=== PATIENT | male | born 1955 | race African-American/Black ===

== ENCOUNTER 2021-10-16 11:38 | Inpatient (IN) | payer OTHER ==
[~2021-10-16] VITALS: Ht 170.2 cm; Wt 73.9 kg
[2021-10-16 12:22] LABS: BG BASE EXCESS -16.3 mmol/L (-2.0-2.0); BG CARBOXYHEMOGLOBIN 0.6 % (0.5-1.5); BG DEOXYHEMOGLOBIN 9.5 % (0.0-5.0); BG HCO3 ACT 8.3 mmol/L (22.0-26.0); BG METHEMOGLOBIN 0.2 % (0.0-1.5); BG OXYGEN SATURATION 90.4 % (92.0-98.5); BG OXYHEMOGLOBIN 89.7 % (94.0-97.0); BG PCO2 18.6 mmHg (35.0-45.0); BG PH 7.267 (7.350-7.450); BG PO2 60.3 mmHg (75.0-100.0); BG SAMPLE SITE RIGHT BRACHIAL; BG TOTAL HEMOGLOBIN 13.5 g/dL (12.0-18.0); BG VENT MODE NASAL CANNULA
[2021-10-16 12:29] LABS: BASOPHILS % 0.6 % (0.0-2.0); EOSINOPHILS % 0.7 % (0.0-5.0); HEMATOCRIT. 44.8 % (42.0-52.0); HEMOGLOBIN. 13.4 g/dL (14.0-18.0); LYMPHOCYTES % 16.5 % (20.0-50.0); MEAN CORPUSCULAR HEMOGLOBIN 30.1 pg (28.0-32.0); MEAN CORPUSCULAR VOLUME 100.7 fL (80.0-94.0); MEAN PLATELET VOLUME 8.3 fl (7.4-10.4); MONOCYTES % 5.1 % (2.0-8.0); NEUTROPHILS % 77.1 % (40.0-76.0); PLATELET 205 x1000/uL (130-400); RED BLOOD CELL COUNT 4.45 mill/uL (4.7-6.1); RED CELL DISTRIBUTION WIDTH 19.8 % (11.6-14.6)
[2021-10-16] MEDS ORDERED: VANCOMYCIN 1G PREMIX 200 ML IV ONE (12:30)
[2021-10-16] MEDS ORDERED: SODIUM CHLORIDE 0.9% 1,000 ML IV ONE ×3 (12:30→16:30)
[2021-10-16] MEDS ORDERED: CEFEPIME 2,000 MG in DEXT 5% WATER 100 ML IV SCH (12:30)
[2021-10-16] MEDS ORDERED: NOREPINEPHRINE 8MG/250ML PMX 250 ML IV ONE (12:30)
[2021-10-16 12:40] LABS: CHLORIDE 117 mEq/L (98-107)
[2021-10-16 12:48] LABS: ETHANOL BLOOD < 10 mg/dL
[2021-10-16] MEDS ORDERED: LIDOCAINE HCL/EPINEPHRINE 1%-EPI 1:100,000 20 ML VIAL ONE (13:02)
[2021-10-16 13:05] LABS: INR 1.3
[2021-10-16] MEDS ORDERED: VANCOMYCIN 1G PREMIX 200 ML IV NR (15:15)
[2021-10-16 15:22] LABS: CLARITY URINE CLEAR (CLEAR); COLOR URINE YELLOW (YELLOW); KETONES URINE NEGATIVE (NEGATIVE); LEUKOCYTE ESTERASE URINE NEGATIVE (NEGATIVE); NITRITE URINE NEGATIVE (NEGATIVE); OCCULT BLOOD URINE NEGATIVE (NEGATIVE); PROTEIN URINE 3+ (NEGATIVE); SPECIFIC GRAVITY URINE 1.022 (1.005-1.030); UROBILINOGEN URINE 0.2 E.U./dL (0.2-1.0)
[2021-10-16] MEDS ORDERED: ONDANSETRON HCL 4MG/2ML INJ IV ONE (15:30)
[2021-10-16] MEDS ORDERED: MORPHINE SULFATE 2 MG/ML CPJ (NOT FOR IM USE) IV ONE (15:30)
[2021-10-16 15:38] LABS: *AMPHETAMINES SCREEN URINE NEGATIVE (NEGATIVE); *BARBITURATES SCREEN URINE NEGATIVE (NEGATIVE); *BENZODIAZEPINES SCREEN URINE NEGATIVE (NEGATIVE); *COCAINE SCREEN URINE NEGATIVE (NEGATIVE); CANNABINOID URINE SCREEN NEGATIVE (NEGATIVE); METHADONE URINE SCREEN NEGATIVE (NEGATIVE); OPIATES URINE SCREEN NEGATIVE (NEGATIVE); PHENCYCLIDINE URINE SCREEN NEGATIVE (NEGATIVE)
[2021-10-16] MEDS ORDERED: SODIUM BICARBONATE 8.4% 1 MEQ/ML 50ML SYR IV ONE (16:30)
[2021-10-16] MEDS ORDERED: IPRATROPIUM/ALBUTEROL 0.5-3(2.5)MG/3ML NEB HHN PRN (16:30)
[2021-10-16] MEDS: VANCOMYCIN 1000MG/20ML ORAL SOLN PO SCH (18:00)
[2021-10-16] MEDS ORDERED: AZITHROMYCIN 500 MG TABLET PO NR (18:00)
[2021-10-16] MEDS ORDERED: NOREPINEPHRINE 8MG/250ML PMX 250 ML IV NR (18:00)
[2021-10-16] MEDS ORDERED: FUROSEMIDE 20MG/2ML VIAL IVP ONE (18:30)
[2021-10-16] MEDS ORDERED: NITROGLYCERIN 50MG PREMIX 250 ML IV ONE (20:15)
[2021-10-16 20:51] LABS: BG CARBOXYHEMOGLOBIN 0.2 % (0.5-1.5); BG DEOXYHEMOGLOBIN 1.6 % (0.0-5.0); BG FRACTION INSPIRED OXYGEN 100; BG HCO3 ACT 9.5 mmol/L (22.0-26.0); BG METHEMOGLOBIN 0.3 % (0.0-1.5); BG OXYGEN SATURATION 98.4 % (92.0-98.5); BG OXYHEMOGLOBIN 97.9 % (94.0-97.0); BG PCO2 20.4 mmHg (35.0-45.0); BG PH 7.284 (7.350-7.450); BG PO2 143.2 mmHg (75.0-100.0); BG SAMPLE SITE RIGHT RADIAL; BG TOTAL HEMOGLOBIN 13.3 g/dL (12.0-18.0); BG VENT MODE MASK - BIPAP
[2021-10-16] MEDS ORDERED: SODIUM BICARBONATE 8.4% 1 MEQ/ML 50ML SYR IV NR (21:15)
[2021-10-16] MEDS ORDERED: SODIUM BICARBONATE 100 MEQ in SODIUM CHLORIDE 0.45% 1,000 ML IV ONE (21:30)
[2021-10-16] MEDS ORDERED: ONDANSETRON HCL 4MG/2ML INJ IV PRN (23:30)
[2021-10-16] MEDS ORDERED: ACETAMINOPHEN 325MG TABLET PO PRN ×2 (23:30)
[2021-10-16] MEDS ORDERED: DIPHENHYDRAMINE 50MG/ML VIAL IV PRN (23:30)
[2021-10-16] MEDS ORDERED: HYDROCODONE/ACETAMINOPHEN 5/325MG TABLET PO PRN (23:30)
[2021-10-17] VITALS (154 sets, daily range): BP systolic 64–153; BP diastolic 34–111
[2021-10-17] MEDS: ACETYLCYSTEINE 100MG/ML 10% VIAL 4ML INH SCH ×3 (00:19→14:00)
[2021-10-17] MEDS: IPRATROPIUM/ALBUTEROL 0.5-3(2.5)MG/3ML NEB HHN SCH ×6 (00:19→20:00)
[2021-10-17] MEDS: CEFEPIME 2,000 MG in DEXT 5% WATER 100 ML IV SCH ×2 (00:59→12:05)
[2021-10-17] MEDS: NOREPINEPHRINE 32 MG in DEXT 5% WATER 218 ML IV PRN ×2 (01:00→14:28)
[2021-10-17 05:29] LABS: HEMATOCRIT. 35.9 % (42.0-52.0); HEMOGLOBIN. 11.4 g/dL (14.0-18.0); MEAN CORPUSCULAR HEMOGLOBIN 30.2 pg (28.0-32.0); MEAN CORPUSCULAR VOLUME 94.8 fL (80.0-94.0); MEAN PLATELET VOLUME 8.4 fl (7.4-10.4); PLATELET 181 x1000/uL (130-400); RED BLOOD CELL COUNT 3.78 mill/uL (4.7-6.1); RED CELL DISTRIBUTION WIDTH 19.1 % (11.6-14.6)
[2021-10-17] MEDS: BLOOD SUGAR DIAGNOSTIC STRIP TEST SCH ×4 (05:39→20:40)
[2021-10-17 05:46] LABS: CHLORIDE 115 mEq/L (98-107)
[2021-10-17 05:56] LABS: PHOSPHORUS 4.2 mg/dL (2.5-4.9)
[2021-10-17] MEDS: VANCOMYCIN 1000MG/20ML ORAL SOLN PO SCH ×5 (06:20→23:52)
[2021-10-17] MEDS: INSULIN LISPRO 100 UNITS/ML SUBCUT SCH ×4 (06:21→20:40)
[2021-10-17 06:38] LABS: PLATELET ESTIMATE NORMAL
[2021-10-17 08:03] LABS: BG BASE EXCESS -12.9 mmol/L (-2.0-2.0); BG CARBOXYHEMOGLOBIN 0.3 % (0.5-1.5); BG DEOXYHEMOGLOBIN 3.5 % (0.0-5.0); BG FRACTION INSPIRED OXYGEN 100; BG METHEMOGLOBIN 0.2 % (0.0-1.5); BG OXYGEN SATURATION 96.5 % (92.0-98.5); BG PCO2 21.6 mmHg (35.0-45.0); BG PH 7.325 (7.350-7.450); BG PO2 90.4 mmHg (75.0-100.0); BG SAMPLE SITE RIGHT BRACHIAL; BG TOTAL HEMOGLOBIN 12.7 g/dL (12.0-18.0); BG TOTAL RESPIRATORY RATE 42 b/min; BG VENT MODE MASK - BIPAP
[2021-10-17] MEDS ORDERED: VECURONIUM BROMIDE 10 MG/VIAL IV ONE (08:30)
[2021-10-17] MEDS ORDERED: ETOMIDATE 2MG/ML 10ML VIAL IV ONE (08:30)
[2021-10-17] MEDS: PANTOPRAZOLE SODIUM 40 MG/VIAL IV SCH (08:34)
[2021-10-17] MEDS ORDERED: AZITHROMYCIN 500 MG TABLET PO SCH (09:00)
[2021-10-17] MEDS ORDERED: LIDOCAINE HCL 1% 30ML VIAL (10MG/ML) ONE (09:47)
[2021-10-17] MEDS: PHENYLEPHRINE 100 MG in DEXT 5% WATER 240 ML IV PRN ×3 (11:35→19:18)
[2021-10-17 11:54] LABS: HEPATITIS B SURFACE ANTIGEN NEGATIVE
[2021-10-17] MEDS ORDERED: SODIUM BICARBONATE 8.4% 1 MEQ/ML 50ML SYR IV SCH (12:15)
[2021-10-17] MEDS: DEXTROSE 50% WATER 50ML SYRINGE IV PRN (12:57)
[2021-10-17] MEDS ORDERED: FENTANYL 2500MCG/250ML PMX 250 ML IV ONE (13:00)
[2021-10-17] MEDS ORDERED: NALOXONE HCL 0.4MG/ML VIAL IV PRN (13:00)
[2021-10-17] MEDS ORDERED: MIDAZOLAM 100MG/100ML PMX 100 ML IV PRN (13:00)
[2021-10-17] MEDS: MIDAZOLAM HCL 100 MG in SODIUM CHLORIDE 0.9% 100 ML IV PRN (13:59)
[2021-10-17] MEDS: FENTANYL CITRATE 2,500 MCG in SODIUM CHLORIDE 0.9% 200 ML IV PRN (14:00)
[2021-10-17 14:08] LABS: BG BASE EXCESS -17.2 mmol/L (-2.0-2.0); BG CARBOXYHEMOGLOBIN 0.3 % (0.5-1.5); BG DEOXYHEMOGLOBIN 9.5 % (0.0-5.0); BG FRACTION INSPIRED OXYGEN 100; BG HCO3 ACT 12.2 mmol/L (22.0-26.0); BG METHEMOGLOBIN 0.1 % (0.0-1.5); BG OXYGEN SATURATION 90.5 % (92.0-98.5); BG OXYHEMOGLOBIN 90.1 % (94.0-97.0); BG PCO2 42.1 mmHg (35.0-45.0); BG PH 7.079 (7.350-7.450); BG SAMPLE SITE RIGHT RADIAL; BG TOTAL HEMOGLOBIN 12.4 g/dL (12.0-18.0); BG VENT MODE VENT - AC
[2021-10-17] MEDS ORDERED: SODIUM BICARBONATE 8.4% 1 MEQ/ML 50ML SYR IV NR (14:30)
[2021-10-17] MEDS: SODIUM BICARBONATE 100 MEQ in SODIUM CHLORIDE 0.45% 1,000 ML IV SCH (14:30)
[2021-10-17] MEDS: VASOPRESSIN 20 UNIT in SODIUM CHLORIDE 0.9% 99 ML IV PRN ×2 (14:44→22:30)
[2021-10-17] MEDS ORDERED: SODIUM CHLORIDE 0.9% 500 ML IV NR (16:00)
[2021-10-17 16:17] LABS: BG BASE EXCESS -12.4 mmol/L (-2.0-2.0); BG CARBOXYHEMOGLOBIN 0.3 % (0.5-1.5); BG DEOXYHEMOGLOBIN 2.8 % (0.0-5.0); BG FRACTION INSPIRED OXYGEN 100; BG HCO3 ACT 12.9 mmol/L (22.0-26.0); BG METHEMOGLOBIN 0.3 % (0.0-1.5); BG OXYGEN SATURATION 97.2 % (92.0-98.5); BG OXYHEMOGLOBIN 96.6 % (94.0-97.0); BG PCO2 28.2 mmHg (35.0-45.0); BG PH 7.279 (7.350-7.450); BG PO2 106.6 mmHg (75.0-100.0); BG SAMPLE SITE RIGHT RADIAL; BG TOTAL HEMOGLOBIN 12.2 g/dL (12.0-18.0); BG VENT MODE VENT - AC
[2021-10-17] MEDS ORDERED: AMIODARONE HCL 150 MG in DEXT 5% WATER 100 ML IV NR (19:30)
[2021-10-17] MEDS: AMIODARONE HCL 900 MG in DEXT 5% WATER 482 ML IV PRN (20:05)
[2021-10-17] MEDS ORDERED: VANCOMYCIN 500MG PREMIX 100 ML IV NR (21:00)
[2021-10-18] VITALS (106 sets, daily range): BP systolic 58–164; BP diastolic 28–123
[2021-10-18] MEDS: IPRATROPIUM/ALBUTEROL 0.5-3(2.5)MG/3ML NEB HHN SCH ×5 (00:07→20:27)
[2021-10-18] MEDS: ACETYLCYSTEINE 100MG/ML 10% VIAL 4ML INH SCH ×2 (00:07→08:23)
[2021-10-18] MEDS: NOREPINEPHRINE 32 MG in DEXT 5% WATER 218 ML IV PRN ×2 (02:46→13:02)
[2021-10-18] MEDS: PHENYLEPHRINE 100 MG in DEXT 5% WATER 240 ML IV PRN ×3 (03:47→21:52)
[2021-10-18] MEDS: VANCOMYCIN 1000MG/20ML ORAL SOLN PO SCH ×3 (05:53→17:36)
[2021-10-18] MEDS: INSULIN LISPRO 100 UNITS/ML SUBCUT SCH ×4 (07:00→20:51)
[2021-10-18] MEDS: BLOOD SUGAR DIAGNOSTIC STRIP TEST SCH ×4 (07:06→21:00)
[2021-10-18 08:13] LABS: BG BASE EXCESS -11.6 mmol/L (-2.0-2.0); BG CARBOXYHEMOGLOBIN 0.3 % (0.5-1.5); BG DEOXYHEMOGLOBIN 1.1 % (0.0-5.0); BG FRACTION INSPIRED OXYGEN 100; BG HCO3 ACT 11.8 mmol/L (22.0-26.0); BG OXYGEN SATURATION 98.9 % (92.0-98.5); BG OXYHEMOGLOBIN 98.6 % (94.0-97.0); BG PCO2 21.3 mmHg (35.0-45.0); BG PO2 190.9 mmHg (75.0-100.0); BG SAMPLE SITE RIGHT BRACHIAL; BG TOTAL HEMOGLOBIN 12.3 g/dL (12.0-18.0); BG VENT MODE VENT - AC
[2021-10-18] MEDS: CEFEPIME 1,000 MG in DEXTROSE 5% WATER 50 ML IV SCH (08:19)
[2021-10-18] MEDS: AZITHROMYCIN 500 MG in DEXT 5% WATER 250 ML IV SCH (08:19)
[2021-10-18] MEDS: PANTOPRAZOLE SODIUM 40 MG/VIAL IV SCH (08:19)
[2021-10-18] MEDS ORDERED: SODIUM BICARBONATE 8.4% 1 MEQ/ML 50ML SYR IV NR (09:24)
[2021-10-18] MEDS: SODIUM BICARBONATE 100 MEQ in SODIUM CHLORIDE 0.45% 1,000 ML IV SCH (09:50)
[2021-10-18 10:35] LABS: HEMATOCRIT. 36.9 % (42.0-52.0); HEMOGLOBIN. 11.7 g/dL (14.0-18.0); MEAN CORPUSCULAR HEMOGLOBIN 29.9 pg (28.0-32.0); MEAN CORPUSCULAR VOLUME 94.5 fL (80.0-94.0); MEAN PLATELET VOLUME 8.4 fl (7.4-10.4); PLATELET 86 x1000/uL (130-400); RED CELL DISTRIBUTION WIDTH 19.6 % (11.6-14.6)
[2021-10-18] MEDS: DEXTROSE 50% WATER 50ML SYRINGE IV PRN ×3 (11:17→20:50)
[2021-10-18 12:43] LABS: PLATELET ESTIMATE DECREASED
[2021-10-18] MEDS: FENTANYL CITRATE 2,500 MCG in SODIUM CHLORIDE 0.9% 200 ML IV PRN (13:02)
[2021-10-18] MEDS ORDERED: POTA10CA42 MT (15:31)
[2021-10-18] MEDS ORDERED: SODI650T PO (15:33)
[2021-10-18] MEDS ORDERED: APIX5TAB PO (15:33)
[2021-10-18] MEDS ORDERED: PRED5TAB48 PO (15:34)
[2021-10-18] MEDS ORDERED: MYCO250C PO (15:35)
[2021-10-18] MEDS ORDERED: SILD20TA PO (15:36)
[2021-10-18] MEDS ORDERED: TACR1CAP PO (15:37)
[2021-10-18] MEDS ORDERED: ATOR20TA65 PO (15:38)
[2021-10-18] MEDS ORDERED: VITA250012 MT (15:39)
[2021-10-18] MEDS ORDERED: CALC0.253 PO (15:41)
[2021-10-18] MEDS ORDERED: DIGOXIN 500MCG/2ML AMP IV NR ×2 (16:15→18:30)
[2021-10-18] MEDS: AMIODARONE HCL 900 MG in DEXT 5% WATER 482 ML IV PRN (17:16)
[2021-10-18] MEDS: VASOPRESSIN 20 UNIT in SODIUM CHLORIDE 0.9% 99 ML IV PRN (19:41)
[2021-10-18 19:58] LABS: D-DIMER 17.77 mg/L FEU (<0.50); PROTHROMBIN TIME 20.6 sec (9.6-11.0)
[2021-10-19] VITALS (98 sets, daily range): BP systolic 77–170; BP diastolic 48–91
[2021-10-19] MEDS: IPRATROPIUM/ALBUTEROL 0.5-3(2.5)MG/3ML NEB HHN SCH ×7 (00:19→23:55)
[2021-10-19] MEDS: ACETYLCYSTEINE 100MG/ML 10% VIAL 4ML INH SCH ×4 (00:19→23:54)
[2021-10-19] MEDS: VANCOMYCIN 1000MG/20ML ORAL SOLN PO SCH ×4 (00:20→18:43)
[2021-10-19] MEDS: MIDAZOLAM HCL 100 MG in SODIUM CHLORIDE 0.9% 100 ML IV PRN (01:09)
[2021-10-19] MEDS: VASOPRESSIN 20 UNIT in SODIUM CHLORIDE 0.9% 99 ML IV PRN ×2 (02:59→13:49)
[2021-10-19 05:04] LABS: HEMATOCRIT. 34.7 % (42.0-52.0); HEMOGLOBIN. 11.1 g/dL (14.0-18.0); MEAN CORPUSCULAR HEMOGLOBIN 29.8 pg (28.0-32.0); MEAN CORPUSCULAR VOLUME 93.1 fL (80.0-94.0); MEAN PLATELET VOLUME 8.6 fl (7.4-10.4); PLATELET 64 x1000/uL (130-400); RED BLOOD CELL COUNT 3.73 mill/uL (4.7-6.1); RED CELL DISTRIBUTION WIDTH 19.4 % (11.6-14.6)
[2021-10-19] MEDS: PHENYLEPHRINE 100 MG in DEXT 5% WATER 240 ML IV PRN ×3 (06:39→23:37)
[2021-10-19] MEDS: BLOOD SUGAR DIAGNOSTIC STRIP TEST SCH ×4 (06:59→20:53)
[2021-10-19] MEDS: INSULIN LISPRO 100 UNITS/ML SUBCUT SCH ×3 (06:59→16:55)
[2021-10-19] MEDS: DEXTROSE 50% WATER 50ML SYRINGE IV PRN (07:02)
[2021-10-19 07:11] LABS: NUCLEATED RED BLOOD CELLS 3 /100 WBC
[2021-10-19 07:12] LABS: PLATELET ESTIMATE DECREASED
[2021-10-19] MEDS: AZITHROMYCIN 500 MG in DEXT 5% WATER 250 ML IV SCH (07:53)
[2021-10-19] MEDS: SODIUM BICARBONATE 100 MEQ in SODIUM CHLORIDE 0.45% 1,000 ML IV SCH (08:20)
[2021-10-19] MEDS: PANTOPRAZOLE SODIUM 40 MG/VIAL IV SCH (08:23)
[2021-10-19] MEDS: CEFEPIME 1,000 MG in DEXTROSE 5% WATER 50 ML IV SCH (08:58)
[2021-10-19 09:00] LABS: BG BASE EXCESS -5.6 mmol/L (-2.0-2.0); BG CARBOXYHEMOGLOBIN 0.4 % (0.5-1.5); BG DEOXYHEMOGLOBIN 3.4 % (0.0-5.0); BG METHEMOGLOBIN 0.2 % (0.0-1.5); BG OXYGEN SATURATION 96.6 % (92.0-98.5); BG PCO2 29.2 mmHg (35.0-45.0); BG PH 7.407 (7.350-7.450); BG PO2 93.3 mmHg (75.0-100.0); BG SAMPLE SITE RIGHT RADIAL; BG TOTAL HEMOGLOBIN 11.5 g/dL (12.0-18.0); BG VENT MODE VENT - AC
[2021-10-19] MEDS ORDERED: VANCOMYCIN 500MG PREMIX 100 ML IV SCH (11:00)
[2021-10-19] MEDS: FENTANYL CITRATE 2,500 MCG in SODIUM CHLORIDE 0.9% 200 ML IV PRN (13:50)
[2021-10-19] MEDS: MEROPENEM 1,000 MG in SODIUM CHLORIDE 0.9% 100 ML IV SCH (17:26)
[2021-10-20] VITALS (91 sets, daily range): BP systolic 72–170; BP diastolic 36–134
[2021-10-20] MEDS ORDERED: BLOOD SUGAR DIAGNOSTIC STRIP TEST SCH
[2021-10-20] MEDS: VASOPRESSIN 20 UNIT in SODIUM CHLORIDE 0.9% 99 ML IV PRN (01:13)
[2021-10-20] MEDS: IPRATROPIUM/ALBUTEROL 0.5-3(2.5)MG/3ML NEB HHN SCH ×5 (03:26→20:12)
[2021-10-20 05:31] LABS: HEMATOCRIT 32.4 % (42.0-52.0); HEMOGLOBIN 10.5 g/dL (14.0-18.0); MEAN CORPUSCULAR HEMOGLOBIN 29.7 pg (28.0-32.0); MEAN CORPUSCULAR VOLUME 91.9 fL (80.0-94.0); RED BLOOD CELL COUNT 3.52 mill/uL (4.7-6.1); RED CELL DISTRIBUTION WIDTH 18.9 % (11.6-14.6)
[2021-10-20 05:44] LABS: PLATELET 45 x1000/uL (130-400)
[2021-10-20] MEDS: VANCOMYCIN 1000MG/20ML ORAL SOLN PO SCH ×4 (06:00→17:41)
[2021-10-20] MEDS: SODIUM BICARBONATE 100 MEQ in SODIUM CHLORIDE 0.45% 1,000 ML IV SCH (06:14)
[2021-10-20] MEDS: INSULIN LISPRO 100 UNITS/ML SUBCUT SCH ×5 (06:15→21:00)
[2021-10-20] MEDS: AZITHROMYCIN 500 MG in DEXT 5% WATER 250 ML IV SCH (07:52)
[2021-10-20] MEDS: PANTOPRAZOLE SODIUM 40 MG/VIAL IV SCH (08:04)
[2021-10-20] MEDS: ACETYLCYSTEINE 100MG/ML 10% VIAL 4ML INH SCH ×2 (09:11→16:49)
[2021-10-20] MEDS: CITRIC ACID/SODIUM CITRATE SOLN 30ML UDC NG SCH ×3 (09:26→17:41)
[2021-10-20 09:33] LABS: BG BASE EXCESS 0.8 mmol/L (-2.0-2.0); BG CARBOXYHEMOGLOBIN 0.3 % (0.5-1.5); BG DEOXYHEMOGLOBIN 5.7 % (0.0-5.0); BG FRACTION INSPIRED OXYGEN 55; BG HCO3 ACT 22.6 mmol/L (22.0-26.0); BG METHEMOGLOBIN 0.1 % (0.0-1.5); BG OXYGEN SATURATION 94.3 % (92.0-98.5); BG OXYHEMOGLOBIN 93.9 % (94.0-97.0); BG PCO2 27.4 mmHg (35.0-45.0); BG PH 7.535 (7.350-7.450); BG PO2 70.8 mmHg (75.0-100.0); BG SAMPLE SITE RIGHT RADIAL; BG TOTAL HEMOGLOBIN 10.7 g/dL (12.0-18.0); BG VENT MODE VENT - AC
[2021-10-20] MEDS: BLOOD SUGAR DIAGNOSTIC STRIP TEST SCH ×3 (12:03→23:51)
[2021-10-20] MEDS: PHENYLEPHRINE 100 MG in DEXT 5% WATER 240 ML IV PRN (14:42)
[2021-10-20] MEDS: MEROPENEM 1,000 MG in SODIUM CHLORIDE 0.9% 100 ML IV SCH (17:41)
[2021-10-20] MEDS: AMIODARONE HCL 900 MG in DEXT 5% WATER 482 ML IV PRN (18:27)
[2021-10-20] MEDS ORDERED: AMIODARONE HCL 100 MG in DEXT 5% WATER 100 ML IV NR (18:30)
[2021-10-21] VITALS (93 sets, daily range): BP systolic 78–129; BP diastolic 42–84
[2021-10-21] MEDS: ACETYLCYSTEINE 100MG/ML 10% VIAL 4ML INH SCH ×3 (00:09→15:39)
[2021-10-21] MEDS: IPRATROPIUM/ALBUTEROL 0.5-3(2.5)MG/3ML NEB HHN SCH ×6 (00:09→20:52)
[2021-10-21] MEDS: VANCOMYCIN 1000MG/20ML ORAL SOLN PO SCH ×4 (00:54→17:30)
[2021-10-21] MEDS: PHENYLEPHRINE 100 MG in DEXT 5% WATER 240 ML IV PRN ×3 (03:03→17:40)
[2021-10-21] MEDS: FENTANYL CITRATE 2,500 MCG in SODIUM CHLORIDE 0.9% 200 ML IV PRN (03:05)
[2021-10-21 04:36] LABS: HEMATOCRIT. 33.1 % (42.0-52.0); HEMOGLOBIN. 10.6 g/dL (14.0-18.0); MEAN CORPUSCULAR HEMOGLOBIN 29.2 pg (28.0-32.0); MEAN CORPUSCULAR VOLUME 91.1 fL (80.0-94.0); MEAN PLATELET VOLUME 9.5 fl (7.4-10.4); RED BLOOD CELL COUNT 3.64 mill/uL (4.7-6.1); RED CELL DISTRIBUTION WIDTH 18.5 % (11.6-14.6)
[2021-10-21 04:42] LABS: CHLORIDE 100 mEq/L (98-107)
[2021-10-21] MEDS: BLOOD SUGAR DIAGNOSTIC STRIP TEST SCH ×3 (05:19→17:30)
[2021-10-21] MEDS: INSULIN LISPRO 100 UNITS/ML SUBCUT SCH ×3 (06:00→16:33)
[2021-10-21 07:26] LABS: NUCLEATED RED BLOOD CELLS 1 /100 WBC; PLATELET ESTIMATE MARKEDLY DECREASED
[2021-10-21 07:27] LABS: PLATELET 28 x1000/uL (130-400)
[2021-10-21] MEDS: PANTOPRAZOLE SODIUM 40 MG/VIAL IV SCH (08:40)
[2021-10-21] MEDS: CITRIC ACID/SODIUM CITRATE SOLN 30ML UDC NG SCH ×3 (08:40→17:28)
[2021-10-21 09:40] LABS: BG BASE EXCESS 3.8 mmol/L (-2.0-2.0); BG CARBOXYHEMOGLOBIN 0.3 % (0.5-1.5); BG FRACTION INSPIRED OXYGEN 70; BG HCO3 ACT 26.1 mmol/L (22.0-26.0); BG OXYHEMOGLOBIN 96.7 % (94.0-97.0); BG PCO2 31.8 mmHg (35.0-45.0); BG PH 7.532 (7.350-7.450); BG PO2 93.4 mmHg (75.0-100.0); BG SAMPLE SITE RIGHT RADIAL; BG TOTAL HEMOGLOBIN 12.3 g/dL (12.0-18.0)
[2021-10-21 09:52] LABS: BG VENT MODE VENT - A/C
[2021-10-21] MEDS: AMIODARONE HCL 900 MG in DEXT 5% WATER 482 ML IV PRN (11:13)
[2021-10-21] MEDS: METOCLOPRAMIDE HCL 10MG/2ML VIAL IV SCH (17:28)
[2021-10-21] MEDS: MEROPENEM 1,000 MG in SODIUM CHLORIDE 0.9% 100 ML IV SCH (17:29)
[2021-10-21] MEDS: POLYVINYL ALCOHOL OPHTH DROPS 15ML BOTHEYE SCH (17:29)
[2021-10-22] VITALS (97 sets, daily range): BP systolic 68–171; BP diastolic 34–108
[2021-10-22] MEDS: BLOOD SUGAR DIAGNOSTIC STRIP TEST SCH ×4 (00:09→18:12)
[2021-10-22] MEDS: VANCOMYCIN 1000MG/20ML ORAL SOLN PO SCH ×4 (00:09→18:00)
[2021-10-22] MEDS: METOCLOPRAMIDE HCL 10MG/2ML VIAL IV SCH ×4 (00:09→18:00)
[2021-10-22] MEDS: POLYVINYL ALCOHOL OPHTH DROPS 15ML BOTHEYE SCH ×4 (00:09→17:59)
[2021-10-22] MEDS: IPRATROPIUM/ALBUTEROL 0.5-3(2.5)MG/3ML NEB HHN SCH ×6 (00:34→21:10)
[2021-10-22 04:08] LABS: PHOSPHORUS 4.6 mg/dL (2.5-4.9)
[2021-10-22 04:11] LABS: HEMATOCRIT. 33.6 % (42.0-52.0); HEMOGLOBIN. 10.6 g/dL (14.0-18.0); MEAN CORPUSCULAR HEMOGLOBIN 29.2 pg (28.0-32.0); MEAN CORPUSCULAR VOLUME 92.4 fL (80.0-94.0); MEAN PLATELET VOLUME 8.7 fl (7.4-10.4); RED BLOOD CELL COUNT 3.63 mill/uL (4.7-6.1); RED CELL DISTRIBUTION WIDTH 17.9 % (11.6-14.6)
[2021-10-22 04:28] LABS: PLATELET 19 x1000/uL (130-400)
[2021-10-22] MEDS: PHENYLEPHRINE 100 MG in DEXT 5% WATER 240 ML IV PRN ×3 (05:15→17:25)
[2021-10-22] MEDS: INSULIN LISPRO 100 UNITS/ML SUBCUT SCH ×4 (06:00→18:00)
[2021-10-22 06:56] LABS: PLATELET ESTIMATE DECREASED
[2021-10-22] MEDS ORDERED: AMIODARONE HCL 900 MG in DEXT 5% WATER 482 ML IV PRN (07:30)
[2021-10-22] MEDS: PANTOPRAZOLE SODIUM 40 MG/VIAL IV SCH (09:09)
[2021-10-22] MEDS: CITRIC ACID/SODIUM CITRATE SOLN 30ML UDC NG SCH ×3 (09:10→16:26)
[2021-10-22] MEDS: FENTANYL CITRATE 2,500 MCG in SODIUM CHLORIDE 0.9% 200 ML IV PRN ×2 (11:11→16:31)
[2021-10-22] MEDS: VASOPRESSIN 20 UNIT in SODIUM CHLORIDE 0.9% 99 ML IV PRN ×2 (11:24→21:05)
[2021-10-22] MEDS: NOREPINEPHRINE 32 MG in DEXT 5% WATER 218 ML IV PRN (11:25)
[2021-10-22] MEDS ORDERED: VANCOMYCIN 750MG PREMIX 150 ML IV SCH (14:00)
[2021-10-22] MEDS: HYDROCORTISONE SOD SUCCINATE 100 MG/2 ML VIAL IV SCH ×2 (14:00→21:05)
[2021-10-22 14:41] LABS: INR 1.8; PROTHROMBIN TIME 18.4 sec (9.6-11.0)
[2021-10-22] MEDS ORDERED: FENTANYL 2500MCG/250ML PMX 250 ML IV ONE (15:45)
[2021-10-22] MEDS: MEROPENEM 1,000 MG in SODIUM CHLORIDE 0.9% 100 ML IV SCH (17:59)
[2021-10-23] VITALS (95 sets, daily range): BP systolic 84–156; BP diastolic 49–85
[2021-10-23] MEDS: BLOOD SUGAR DIAGNOSTIC STRIP TEST SCH ×5 (00:33→23:14)
[2021-10-23] MEDS: POLYVINYL ALCOHOL OPHTH DROPS 15ML BOTHEYE SCH ×5 (00:40→23:14)
[2021-10-23] MEDS: METOCLOPRAMIDE HCL 10MG/2ML VIAL IV SCH ×5 (00:40→23:14)
[2021-10-23] MEDS: IPRATROPIUM/ALBUTEROL 0.5-3(2.5)MG/3ML NEB HHN SCH ×5 (00:59→19:55)
[2021-10-23] MEDS: PHENYLEPHRINE 100 MG in DEXT 5% WATER 240 ML IV PRN ×3 (02:53→15:21)
[2021-10-23] MEDS: INSULIN LISPRO 100 UNITS/ML SUBCUT SCH ×5 (06:00→23:14)
[2021-10-23] MEDS: HYDROCORTISONE SOD SUCCINATE 100 MG/2 ML VIAL IV SCH ×3 (06:43→21:16)
[2021-10-23 08:06] LABS: BG BASE EXCESS 2.6 mmol/L (-2.0-2.0); BG CARBOXYHEMOGLOBIN 0.6 % (0.5-1.5); BG DEOXYHEMOGLOBIN 4.6 % (0.0-5.0); BG FRACTION INSPIRED OXYGEN 50; BG HCO3 ACT 26.9 mmol/L (22.0-26.0); BG METHEMOGLOBIN 0.2 % (0.0-1.5); BG OXYGEN SATURATION 95.4 % (92.0-98.5); BG OXYHEMOGLOBIN 94.6 % (94.0-97.0); BG PCO2 40.1 mmHg (35.0-45.0); BG PH 7.444 (7.350-7.450); BG PO2 80.4 mmHg (75.0-100.0); BG SAMPLE SITE LEFT BRACHIAL; BG TOTAL HEMOGLOBIN 12.1 g/dL (12.0-18.0); BG VENT MODE VENT - AC
[2021-10-23 08:49] LABS: HEMATOCRIT 35.5 % (42.0-52.0); HEMOGLOBIN 11.1 g/dL (14.0-18.0); MEAN CORPUSCULAR HEMOGLOBIN 29.2 pg (28.0-32.0); MEAN CORPUSCULAR VOLUME 93.1 fL (80.0-94.0); RED BLOOD CELL COUNT 3.82 mill/uL (4.7-6.1); RED CELL DISTRIBUTION WIDTH 18.4 % (11.6-14.6)
[2021-10-23] MEDS: PANTOPRAZOLE SODIUM 40 MG/VIAL IV SCH (09:17)
[2021-10-23] MEDS: CITRIC ACID/SODIUM CITRATE SOLN 30ML UDC NG SCH ×3 (09:17→17:45)
[2021-10-23 09:52] LABS: PLATELET 39 x1000/uL (130-400)
[2021-10-23 11:36] LABS: HEPATITIS B SURFACE ANTIGEN NEGATIVE
[2021-10-23] MEDS ORDERED: AMIODARONE HCL 900 MG in DEXT 5% WATER 482 ML IV SCH (12:00)
[2021-10-23] MEDS: MEROPENEM 1,000 MG in SODIUM CHLORIDE 0.9% 100 ML IV SCH (17:35)
[2021-10-23] MEDS: FENTANYL CITRATE 2,500 MCG in SODIUM CHLORIDE 0.9% 200 ML IV PRN (20:15)
[2021-10-23] MEDS: PETROLATUM,WHITE OPHTH OINT 3.5GM BOTHEYE SCH (22:03)
[2021-10-24] VITALS (106 sets, daily range): BP systolic 61–181; BP diastolic 35–108
[2021-10-24] MEDS: IPRATROPIUM/ALBUTEROL 0.5-3(2.5)MG/3ML NEB HHN SCH ×6 (00:38→20:25)
[2021-10-24] MEDS: METOCLOPRAMIDE HCL 10MG/2ML VIAL IV SCH ×3 (05:29→17:23)
[2021-10-24] MEDS: POLYVINYL ALCOHOL OPHTH DROPS 15ML BOTHEYE SCH ×3 (05:29→17:23)
[2021-10-24] MEDS: HYDROCORTISONE SOD SUCCINATE 100 MG/2 ML VIAL IV SCH ×3 (05:29→21:56)
[2021-10-24 05:34] LABS: HEMATOCRIT. 36.8 % (42.0-52.0); HEMOGLOBIN. 11.3 g/dL (14.0-18.0); MEAN CORPUSCULAR HEMOGLOBIN 28.6 pg (28.0-32.0); MEAN CORPUSCULAR VOLUME 92.6 fL (80.0-94.0); RED BLOOD CELL COUNT 3.97 mill/uL (4.7-6.1); RED CELL DISTRIBUTION WIDTH 18.4 % (11.6-14.6)
[2021-10-24 05:38] LABS: PLATELET 47 x1000/uL (130-400)
[2021-10-24] MEDS: INSULIN LISPRO 100 UNITS/ML SUBCUT SCH ×3 (05:48→17:11)
[2021-10-24] MEDS: BLOOD SUGAR DIAGNOSTIC STRIP TEST SCH ×3 (05:48→17:11)
[2021-10-24 08:05] LABS: NUCLEATED RED BLOOD CELLS 1 /100 WBC
[2021-10-24 08:07] LABS: PLATELET ESTIMATE MARKEDLY DECREASED
[2021-10-24] MEDS: PETROLATUM,WHITE OPHTH OINT 3.5GM BOTHEYE SCH ×2 (08:51→21:56)
[2021-10-24] MEDS: PANTOPRAZOLE SODIUM 40 MG/VIAL IV SCH (08:51)
[2021-10-24] MEDS: CITRIC ACID/SODIUM CITRATE SOLN 30ML UDC NG SCH ×3 (08:51→17:23)
[2021-10-24 08:57] LABS: BG BASE EXCESS 2.9 mmol/L (-2.0-2.0); BG CARBOXYHEMOGLOBIN 0.3 % (0.5-1.5); BG DEOXYHEMOGLOBIN 4.2 % (0.0-5.0); BG FRACTION INSPIRED OXYGEN 70; BG METHEMOGLOBIN 0.3 % (0.0-1.5); BG OXYGEN SATURATION 95.8 % (92.0-98.5); BG OXYHEMOGLOBIN 95.2 % (94.0-97.0); BG PCO2 39.8 mmHg (35.0-45.0); BG PO2 88.4 mmHg (75.0-100.0); BG SAMPLE SITE RIGHT BRACHIAL; BG VENT MODE VENT - AC
[2021-10-24] MEDS: ACETYLCYSTEINE 100MG/ML 10% VIAL 4ML INH SCH (16:11)
[2021-10-24] MEDS ORDERED: DIGOXIN 500MCG/2ML AMP IV NR (17:00)
[2021-10-24] MEDS: MEROPENEM 1,000 MG in SODIUM CHLORIDE 0.9% 100 ML IV SCH (17:23)
[2021-10-24] MEDS: PHENYLEPHRINE 100 MG in DEXT 5% WATER 240 ML IV PRN (17:25)
[2021-10-24] MEDS ORDERED: VANCOMYCIN 500MG PREMIX 100 ML IV NR (18:00)
[2021-10-24] MEDS: FENTANYL CITRATE 2,500 MCG in SODIUM CHLORIDE 0.9% 200 ML IV PRN (18:30)
[2021-10-24] MEDS ORDERED: DIGOXIN 500MCG/2ML AMP IV PRN ×2 (20:00→23:00)
[2021-10-25] VITALS (98 sets, daily range): BP systolic 74–205; BP diastolic 41–115
[2021-10-25] MEDS: ACETYLCYSTEINE 100MG/ML 10% VIAL 4ML INH SCH ×3 (00:25→16:29)
[2021-10-25] MEDS: IPRATROPIUM/ALBUTEROL 0.5-3(2.5)MG/3ML NEB HHN SCH ×6 (00:25→20:01)
[2021-10-25] MEDS: BLOOD SUGAR DIAGNOSTIC STRIP TEST SCH ×4 (00:51→17:22)
[2021-10-25] MEDS: METOCLOPRAMIDE HCL 10MG/2ML VIAL IV SCH ×4 (00:51→17:45)
[2021-10-25] MEDS: POLYVINYL ALCOHOL OPHTH DROPS 15ML BOTHEYE SCH ×4 (00:51→17:45)
[2021-10-25] MEDS: HYDROCORTISONE SOD SUCCINATE 100 MG/2 ML VIAL IV SCH ×3 (05:51→21:38)
[2021-10-25] MEDS: INSULIN LISPRO 100 UNITS/ML SUBCUT SCH ×4 (06:00→17:22)
[2021-10-25] MEDS: CITRIC ACID/SODIUM CITRATE SOLN 30ML UDC NG SCH ×3 (08:52→17:45)
[2021-10-25] MEDS: PANTOPRAZOLE SODIUM 40 MG/VIAL IV SCH (08:52)
[2021-10-25] MEDS: PETROLATUM,WHITE OPHTH OINT 3.5GM BOTHEYE SCH ×2 (08:52→21:38)
[2021-10-25 08:57] LABS: BG BASE EXCESS 2.6 mmol/L (-2.0-2.0); BG CARBOXYHEMOGLOBIN 0.3 % (0.5-1.5); BG DEOXYHEMOGLOBIN 8.3 % (0.0-5.0); BG FRACTION INSPIRED OXYGEN 50; BG HCO3 ACT 26.4 mmol/L (22.0-26.0); BG METHEMOGLOBIN 0.2 % (0.0-1.5); BG OXYGEN SATURATION 91.7 % (92.0-98.5); BG OXYHEMOGLOBIN 91.2 % (94.0-97.0); BG PCO2 37.8 mmHg (35.0-45.0); BG PH 7.462 (7.350-7.450); BG PO2 66.9 mmHg (75.0-100.0); BG SAMPLE SITE RIGHT BRACHIAL; BG TOTAL HEMOGLOBIN 10.5 g/dL (12.0-18.0); BG VENT MODE VENT - AC
[2021-10-25 09:06] LABS: HEMOGLOBIN. 10.1 g/dL (14.0-18.0); MEAN CORPUSCULAR HEMOGLOBIN 29.6 pg (28.0-32.0); MEAN CORPUSCULAR VOLUME 93.7 fL (80.0-94.0); MEAN PLATELET VOLUME 11.5 fl (7.4-10.4); RED BLOOD CELL COUNT 3.41 mill/uL (4.7-6.1); RED CELL DISTRIBUTION WIDTH 18.3 % (11.6-14.6)
[2021-10-25] MEDS: MIDODRINE HCL 5MG TABLET PO SCH ×3 (09:43→17:00)
[2021-10-25 09:55] LABS: PLATELET ESTIMATE MARKEDLY DECREASED
[2021-10-25 09:56] LABS: PLATELET 44 x1000/uL (130-400)
[2021-10-25] MEDS: MEROPENEM 1,000 MG in SODIUM CHLORIDE 0.9% 100 ML IV SCH (17:45)
[2021-10-25] MEDS: PHENYLEPHRINE 100 MG in DEXT 5% WATER 240 ML IV PRN (17:46)
[2021-10-25] MEDS: FENTANYL CITRATE 2,500 MCG in SODIUM CHLORIDE 0.9% 200 ML IV PRN (17:47)
== END 2021-10-25 23:00 | disposition short-term general hospital (02) | DRG 870 ==
LOC: ER 11:54 → MICUNO 16:27 → EDBEDREQ 16:34 → EDBEDREQSVC 16:34 → MICUNO 10-18 14:25
PROVIDERS: ADMIT Internal Medicine; ATTEND Internal Medicine
PROC: 5A0935A Assistance with Respiratory Ventilation, Less than 24 Consecutive Hours, High Flow/Velocity Cannula (ICD-10-PCS; 2021-10-16)
PROC: 5A09457 Assistance with Respiratory Ventilation, 24-96 Consecutive Hours, Continuous Positive Airway Pressure (ICD-10-PCS; 2021-10-16)
PROC: 02HV33Z Insertion of Infusion Device into Superior Vena Cava, Percutaneous Approach (ICD-10-PCS; 2021-10-16)
PROC: B548ZZA Ultrasonography of Superior Vena Cava, Guidance (ICD-10-PCS; 2021-10-16)
PROC: 5A1955Z Respiratory Ventilation, Greater than 96 Consecutive Hours (ICD-10-PCS; principal; 2021-10-17)
PROC: 0BH17EZ Insertion of Endotracheal Airway into Trachea, Via Natural or Artificial Opening (ICD-10-PCS; 2021-10-17)
PROC: 06HY33Z Insertion of Infusion Device into Lower Vein, Percutaneous Approach (ICD-10-PCS; 2021-10-17)
PROC: 5A1D70Z Performance of Urinary Filtration, Intermittent, Less than 6 Hours Per Day (ICD-10-PCS; 2021-10-18)
PROC: 5A1D70Z Performance of Urinary Filtration, Intermittent, Less than 6 Hours Per Day (ICD-10-PCS; 2021-10-22)
PROC: 5A1D70Z Performance of Urinary Filtration, Intermittent, Less than 6 Hours Per Day (ICD-10-PCS; 2021-10-24)
DX: A41.9 Sepsis, unspecified organism (principal); J18.9 Pneumonia, unspecified organism; J96.01 Acute respiratory failure with hypoxia; N18.6 End stage renal disease; R65.21 Severe sepsis with septic shock; N17.0 Acute kidney failure with tubular necrosis; E87.2 Acidosis; I12.0 Hypertensive chronic kidney disease with stage 5 chronic kidney disease or end stage renal disease; N17.9 Acute kidney failure, unspecified; D68.9 Coagulation defect, unspecified; D84.9 Immunodeficiency, unspecified; I47.1 Supraventricular tachycardia; J81.1 Chronic pulmonary edema; Z94.83 Pancreas transplant status; E87.5 Hyperkalemia; E11.22 Type 2 diabetes mellitus with diabetic chronic kidney disease; D69.6 Thrombocytopenia, unspecified; E11.51 Type 2 diabetes mellitus with diabetic peripheral angiopathy without gangrene; E11.65 Type 2 diabetes mellitus with hyperglycemia; I07.1 Rheumatic tricuspid insufficiency; I27.20 Pulmonary hypertension, unspecified; R74.01 Elevation of levels of liver transaminase levels; I48.0 Paroxysmal atrial fibrillation; M47.9 Spondylosis, unspecified; S00.431A Contusion of right ear, initial encounter; Z20.822 Contact with and (suspected) exposure to COVID-19; Z79.01 Long term (current) use of anticoagulants; Z89.511 Acquired absence of right leg below knee; Z99.2 Dependence on renal dialysis; X58.XXXA Exposure to other specified factors, initial encounter; Y93.89 Activity, other specified; Y92.89 Other specified places as the place of occurrence of the external cause; Y99.8 Other external cause status
CPT/HCPCS: 31500; 36415; 36556; 36573; 36600; 71045; 71250; 74176; 76770; 76937; 80048; 80053; 80076; 80162; 80202; 80305; 80320; 81003; 82040; 82375; 82533; 82705; 82805; 82962; 83036; 83605; 83735; 83880; 84100; 84134; 84145; 84443; 84484; 85025; 85027; 85362; 85379; 85384; 86705; 86709; 86803; 86850; 86900; 87015; 87045; 87070; 87340; 87426; 87427; 87449; 87493; 89055; 93005; 93306; 93970; 94002; 94003; 94640; 94660; 99291; A6261; C1725; C1752; C1769; C9113; C9803; J0282; J0456; J0692; J1160; J1720; J1940; J2185; J2250; J2270; J2370; J2405; J2765; J3010; J3370; J3490; J7030; J7050; J7060; J7608; L8514; A5200; G0480

== ENCOUNTER 2023-10-13 10:05 | Emergency (ER) | payer OTHER ==
[~2023-10-13] VITALS: Ht 167.6 cm; Wt 59.0 kg
[~2023-10-13 10:05] MED LIST: APIX5TAB PO; ASPI81TA43 PO; ATOR20TA65 PO; GABA-529 PO; LAMI100T4 PO; LATA2.5D14 EACHEYE; MIDO5TAB4 PO; MYCO250C PO; PANT40TA51 PO; PRED5TAB PO; SEVE800T8 PO; TACR1CAP MT
[2023-10-13 10:07] VITALS: O2SAT 92
[2023-10-13] MEDS: PIPERACILLIN/TAZO 3.375G/50ML 50 ML IV ONE (10:15)
[2023-10-13] MEDS: SODIUM CHLORIDE 0.9% 1000ML BAG (SEPSIS BOLUS) IV ONE (10:38)
[2023-10-13 10:42] LABS: INR 2.6; PROTHROMBIN TIME 27.4 sec (9.6-11.0)
[2023-10-13] MEDS: VANCOMYCIN 1G PREMIX 200 ML IV ONE (11:21)
[2023-10-13 11:48] LABS: BASOPHILS % 0.3 % (0.0-2.0); HEMATOCRIT. 36.8 % (42.0-52.0); HEMOGLOBIN. 11.7 g/dL (14.0-18.0); LYMPHOCYTES % 11.2 % (20.0-50.0); MEAN CORPUSCULAR HGB CONC 31.7 g/dL (31.0-37.0); MEAN CORPUSCULAR VOLUME 97.8 fL (80.0-94.0); MEAN PLATELET VOLUME 9.2 fl (7.4-10.4); MONOCYTES % 8.8 % (2.0-8.0); NEUTROPHILS % 77.7 % (40.0-76.0); PLATELET 290 x1000/uL (130-400); RED BLOOD CELL COUNT 3.76 mill/uL (4.7-6.1); RED CELL DISTRIBUTION WIDTH 15.3 % (11.6-14.6); WHITE BLOOD COUNT 10.2 x1000/uL (4.5-11.0)
[2023-10-13 11:55] LABS: POTASSIUM 4.3 mEq/L (3.5-5.1)
[2023-10-13 11:56] LABS: CALCIUM 7.9 mg/dL (8.7-10.4)
[2023-10-13 12:30] LABS: CREATININE 8.6 mg/dL (0.6-1.3)
[2023-10-13 13:50] VITALS: BP 108/61; PULSE 97; RESP 17; TEMP 36.83628; O2SAT 95
[2023-10-13 14:32] LABS: HEPATITIS B SURFACE ANTIGEN NEGATIVE (Negative)
[2023-10-13 14:45] LABS: HEPATITIS A AB IGM NEGATIVE (Negative)
[2023-10-13 14:46] LABS: HEPATITIS C AB NON REACTIVE (Neg) (Negative)
[2023-10-13 14:53] LABS: HEPATITIS B CORE AB IGM NEGATIVE (Negative)
== END 2023-10-13 14:13 | disposition short-term general hospital (02) ==
LOC: ER 10:05 → EDBEDREQTM 12:23 → EDBEDREQ 12:23 → ER 14:13
DX: A41.9 Sepsis, unspecified organism (principal); I12.0 Hypertensive chronic kidney disease with stage 5 chronic kidney disease or end stage renal disease; E11.22 Type 2 diabetes mellitus with diabetic chronic kidney disease; I48.91 Unspecified atrial fibrillation; Z98.890 Other specified postprocedural states; Z99.2 Dependence on renal dialysis
CPT/HCPCS: 99291; 96365; 96367; 96366; 80048; 82962; 83605; 85025; 85610; 86850; 86900; 86901; 86920; 87340; 87040; 86709; 84145; 71045; 93005; 36415; 86705; J2543; J3370; J7030

== ENCOUNTER 2023-10-15 09:48 | Emergency (ER) | payer OTHER ==
[~2023-10-15] VITALS: Ht 175.3 cm; Wt 68.0 kg
[2023-10-15 09:56] VITALS: O2SAT 98
[2023-10-15 10:30] LABS: HEMATOCRIT. 38.7 % (42.0-52.0); HEMOGLOBIN. 12.1 g/dL (14.0-18.0); MEAN CORPUSCULAR HEMOGLOBIN 31.1 pg (28.0-32.0); MEAN CORPUSCULAR HGB CONC 31.3 g/dL (31.0-37.0); MEAN CORPUSCULAR VOLUME 99.5 fL (80.0-94.0); MEAN PLATELET VOLUME 8.9 fl (7.4-10.4); PLATELET 401 x1000/uL (130-400); RED BLOOD CELL COUNT 3.89 mill/uL (4.7-6.1); RED CELL DISTRIBUTION WIDTH 15.7 % (11.6-14.6); WHITE BLOOD COUNT 10.8 x1000/uL (4.5-11.0)
[2023-10-15 10:38] LABS: DIFFERENTIAL COMMENT 1
[2023-10-15 10:42] LABS: INR 1.4
[2023-10-15 10:46] LABS: CHLORIDE 104 mEq/L (98-107); POTASSIUM 3.9 mEq/L (3.5-5.1); SODIUM 136 mEq/L (136-145)
[2023-10-15 10:47] LABS: CALCIUM 8.3 mg/dL (8.7-10.4); CARBON DIOXIDE 17 mEq/L (21-32)
[2023-10-15 10:52] LABS: GLUCOSE 181 mg/dL (70-105); UREA NITROGEN BLOOD 44 mg/dL (9-23)
[2023-10-15 10:54] LABS: ALANINE AMINOTRANSFERASE < 7 IU/L (10-49); ALBUMIN 3.7 g/dL (3.2-4.8); ASPARTATE AMINOTRANSFERASE 13 IU/L (<34); BILIRUBIN DIRECT 0.1 mg/dL (<=3.0); BILIRUBIN TOTAL 0.3 mg/dL (0.1-1.0); PROTEIN TOTAL 6.5 g/dL (6.0-8.3)
[2023-10-15 11:11] LABS: CREATININE 11.3 mg/dL (0.6-1.3)
[2023-10-15 11:12] LABS: TROPONIN I HIGH SENSITIVITY 78 ng/L (3.0-53)
[2023-10-15 11:59] LABS: PLATELET ESTIMATE NORMAL
[2023-10-15 13:24] LABS: TROPONIN I HIGH SENSITIVITY 65 ng/L (3.0-53)
[2023-10-15 16:51] LABS: HEPATITIS B SURFACE ANTIGEN NEGATIVE (Negative)
[2023-10-15 17:12] LABS: HEPATITIS A AB IGM NEGATIVE (Negative)
[2023-10-15 17:13] LABS: HEPATITIS B CORE AB IGM NEGATIVE (Negative); HEPATITIS C AB NON REACTIVE (Neg) (Negative)
[2023-10-15 18:10] VITALS: BP 124/79; PULSE 90; RESP 16; TEMP 36.55848; O2SAT 100
[2023-10-15 23:20] LABS: CALCIUM 8.4 mg/dL (8.7-10.4)
== END 2023-10-15 18:51 | disposition short-term general hospital (02) ==
LOC: ER 09:48 → CANBEDREQ 16:28 → ER 18:51
DX: R55 Syncope and collapse (principal); I12.0 Hypertensive chronic kidney disease with stage 5 chronic kidney disease or end stage renal disease; E11.22 Type 2 diabetes mellitus with diabetic chronic kidney disease; N18.6 End stage renal disease; I48.91 Unspecified atrial fibrillation; Z88.6 Allergy status to analgesic agent; Z91.09 Other allergy status, other than to drugs and biological substances; Z88.8 Allergy status to other drugs, medicaments and biological substances; Z79.899 Other long term (current) drug therapy; Z79.82 Long term (current) use of aspirin
CPT/HCPCS: 36415; 71045; 72128; 72131; 80048; 80076; 82310; 83605; 84100; 84484; 85025; 86705; 86709; 87340; 93005; 99285

== ENCOUNTER 2024-01-07 10:24 | Inpatient (IN) | payer OTHER, MEDICARE ==
[~2024-01-07] VITALS: Ht 172.7 cm; Wt 60.8 kg
[2024-01-07] MEDS: SODIUM CHLORIDE 0.9% (SEPSIS BOLUS) IV ONE (11:01)
[2024-01-07] MEDS: PIPERACILLIN/TAZO 3.375G/50ML 50 ML IV ONE (11:10)
[2024-01-07 11:35] LABS: HEMATOCRIT. 26.9 % (42.0-52.0); HEMOGLOBIN. 8.3 g/dL (14.0-18.0); MEAN CORPUSCULAR HEMOGLOBIN 30.8 pg (28.0-32.0); MEAN CORPUSCULAR HGB CONC 30.9 g/dL (31.0-37.0); MEAN CORPUSCULAR VOLUME 99.9 fL (80.0-94.0); MEAN PLATELET VOLUME 9.1 fl (7.4-10.4); PLATELET 187 x1000/uL (130-400); RED BLOOD CELL COUNT 2.69 mill/uL (4.7-6.1)
[2024-01-07 11:38] LABS: DIFFERENTIAL COMMENT 1
[2024-01-07 11:46] LABS: LACTIC ACID 2.2 mmol/L (0.4-2.0)
[2024-01-07 11:55] LABS: POTASSIUM 2.7 mEq/L (3.5-5.1)
[2024-01-07 11:56] LABS: CALCIUM 5.7 mg/dL (8.7-10.4)
[2024-01-07] MEDS: VANCOMYCIN 1G PREMIX 200 ML IV ONE (12:04)
[2024-01-07] MEDS: CALCIUM GLUCONATE 1GM PREMIX 50 ML IV ONE (12:15)
[2024-01-07] MEDS: KCL 20MEQ/100ML PREMIX 100 ML IV SCH (12:40)
[2024-01-07] MEDS: LIDOCAINE HCL 1% 10 MG/ML 10ML VIAL ONE (12:53)
[2024-01-07 13:28] LABS: PLATELET ESTIMATE NORMAL
[2024-01-07] MEDS: NOREPINEPHRINE 8MG/250ML PMX 250 ML IV STA (14:56)
[2024-01-07] MEDS ORDERED: IPRATROPIUM/ALBUTEROL 0.5-3(2.5)MG/3ML NEB HHN PRN (15:00)
[2024-01-07] MEDS ORDERED: ONDANSETRON HCL 4MG/2ML INJ IV PRN (15:00)
[2024-01-07] MEDS ORDERED: ACETAMINOPHEN 325MG TABLET PO PRN (15:00)
[2024-01-07 15:12] LABS: INR 1.2; PROTHROMBIN TIME 13.5 sec (9.6-11.0)
[2024-01-07] MEDS ORDERED: ENOXAPARIN 80MG/0.8ML SYR SUBCUT NR (16:00)
[2024-01-07] MEDS: VANCOMYCIN 500MG/100ML IV NR (16:36)
[2024-01-07 16:38] LABS: CHLORIDE 100 mEq/L (98-107); POTASSIUM 4.4 mEq/L (3.5-5.1); SODIUM 134 mEq/L (136-145)
[2024-01-07 16:39] LABS: CALCIUM 8.4 mg/dL (8.7-10.4); CARBON DIOXIDE 23 mEq/L (21-32)
[2024-01-07 16:43] LABS: IRON 26 ug/dL (65-175)
[2024-01-07 16:44] LABS: GLUCOSE 107 mg/dL (70-105); TRIGLYCERIDE 140 mg/dL (0-150); UREA NITROGEN BLOOD 36 mg/dL (9-23)
[2024-01-07 16:45] LABS: LDL CHOLESTEROL 57 mg/dL (5-100)
[2024-01-07 16:46] LABS: ALBUMIN 3.4 g/dL (3.2-4.8); CHOLESTEROL 115 mg/dL (<200); HDL CHOLESTEROL 26 mg/dL (>55); PHOSPHORUS 4.4 mg/dL (2.5-4.9); TOTAL IRON BINDING CAPACITY 286 ug/dl (250-425)
[2024-01-07 16:48] LABS: CREATININE 8.4 mg/dL (0.6-1.3)
[2024-01-07 16:49] LABS: FOLIC ACID (FOLATE) SERUM 18.88 ng/mL (>5.38); INR 1.2; PROTHROMBIN TIME 13.3 sec (9.6-11.0)
[2024-01-07 16:50] LABS: FERRITIN 1342 ng/mL (22-322); VITAMIN B12 SERUM 651 pg/mL (211-911)
[2024-01-07 17:01] LABS: HEPATITIS B SURFACE ANTIGEN NEGATIVE (Negative)
[2024-01-07] MEDS: HYDROCODONE/ACETAMINOPHEN 7.5/325MG TABLET PO PRN (17:12)
[2024-01-07 17:21] LABS: HEPATITIS A AB IGM NEGATIVE (Negative)
[2024-01-07 17:22] LABS: HEPATITIS B CORE AB IGM NEGATIVE (Negative)
[2024-01-07 17:23] LABS: HEPATITIS C AB NON REACTIVE (Neg) (Negative)
[2024-01-07] MEDS: MIDODRINE HCL 5MG TABLET PO SCH (17:50)
[2024-01-07] MEDS: MAGNESIUM 2 G PREMIX 50 ML IV NR (17:50)
[2024-01-07] MEDS: ENOXAPARIN 80MG/0.8ML SYR SUBCUT SCH (18:05)
[2024-01-07] MEDS: MYCOPHENOLATE MOFETIL 500MG TABLET PO SCH (21:02)
[2024-01-07] MEDS: ATORVASTATIN CALCIUM 20MG TABLET PO SCH (21:02)
[2024-01-07] MEDS: PIPERACILLIN/TAZO 3.375G/50ML 50 ML IV SCH (21:02)
[2024-01-07] MEDS: TACROLIMUS 1MG CAPSULE PO SCH (21:02)
[2024-01-07 23:48] LABS: CREATINE KINASE 46 IU/L (46-171)
[2024-01-08] VITALS (9 sets, daily range): BP systolic 62–94; BP diastolic 15–77; PULSE 60–71; RESP 10–27; TEMP 36.05844–37.4188; O2SAT 94–100
[2024-01-08 00:22] LABS: TROPONIN I HIGH SENSITIVITY 925 ng/L (3.0-53)
[2024-01-08] MEDS: NOREPINEPHRINE 8MG/250ML PMX 250 ML IV PRN (00:34)
[2024-01-08 05:19] LABS: HEMATOCRIT 39.2 % (42.0-52.0); HEMOGLOBIN 12.5 g/dL (14.0-18.0); MEAN CORPUSCULAR HGB CONC 31.8 g/dL (31.0-37.0); MEAN CORPUSCULAR VOLUME 97.5 fL (80.0-94.0); PLATELET 225 x1000/uL (130-400); RED BLOOD CELL COUNT 4.03 mill/uL (4.7-6.1); RED CELL DISTRIBUTION WIDTH 15.8 % (11.6-14.6)
[2024-01-08 05:29] LABS: CHLORIDE 103 mEq/L (98-107); SODIUM 135 mEq/L (136-145)
[2024-01-08 05:30] LABS: CALCIUM 8.8 mg/dL (8.7-10.4); CARBON DIOXIDE 20 mEq/L (21-32)
[2024-01-08 05:35] LABS: GLUCOSE 134 mg/dL (70-105); UREA NITROGEN BLOOD 39 mg/dL (9-23)
[2024-01-08 05:37] LABS: ALANINE AMINOTRANSFERASE 8 IU/L (10-49); ALBUMIN 3.6 g/dL (3.2-4.8); ASPARTATE AMINOTRANSFERASE 16 IU/L (<34); BILIRUBIN TOTAL 0.3 mg/dL (0.1-1.0); PROTEIN TOTAL 6.3 g/dL (6.0-8.3)
[2024-01-08 05:40] LABS: CREATININE 9.4 mg/dL (0.6-1.3)
[2024-01-08 06:14] LABS: CREATINE KINASE 38 IU/L (46-171)
[2024-01-08 06:38] LABS: TROPONIN I HIGH SENSITIVITY 1032 ng/L (3.0-53)
[2024-01-08] MEDS: PREDNISONE 5MG TABLET PO SCH (09:39)
[2024-01-08] MEDS: PANTOPRAZOLE 40MG DR TABLET PO SCH (09:39)
[2024-01-08] MEDS: GABAPENTIN 100MG CAPSULE PO SCH (09:40)
[2024-01-08] MEDS ORDERED: NALOXONE HCL 0.4MG/ML VIAL IV PRN (16:00)
[2024-01-08] MEDS: ACETAMINOPHEN 325MG TABLET PO PRN (19:49)
[2024-01-08] MEDS: SODIUM CHLORIDE 0.9% 500 ML IV ONE (20:08)
[2024-01-09] VITALS (31 sets, daily range): BP systolic 59–113; BP diastolic 19–53; PULSE 55–75; RESP 13–25; TEMP 36.05844–36.55848; O2SAT 92–98
[2024-01-09 06:21] LABS: CARBON DIOXIDE 20 mEq/L (21-32); CHLORIDE 102 mEq/L (98-107); POTASSIUM 4.4 mEq/L (3.5-5.1); SODIUM 135 mEq/L (136-145)
[2024-01-09 06:22] LABS: CALCIUM 8.6 mg/dL (8.7-10.4)
[2024-01-09 06:26] LABS: GLUCOSE 82 mg/dL (70-105)
[2024-01-09 06:27] LABS: UREA NITROGEN BLOOD 45 mg/dL (9-23)
[2024-01-09 06:29] LABS: PHOSPHORUS 4.6 mg/dL (2.5-4.9)
[2024-01-09 06:42] LABS: HEMATOCRIT 34.9 % (42.0-52.0); MEAN CORPUSCULAR HEMOGLOBIN 31.3 pg (28.0-32.0); MEAN CORPUSCULAR HGB CONC 31.4 g/dL (31.0-37.0); MEAN CORPUSCULAR VOLUME 99.5 fL (80.0-94.0); PLATELET 178 x1000/uL (130-400); RED BLOOD CELL COUNT 3.51 mill/uL (4.7-6.1); RED CELL DISTRIBUTION WIDTH 16.1 % (11.6-14.6); WHITE BLOOD COUNT 14.7 x1000/uL (4.5-11.0)
[2024-01-09 06:50] LABS: CREATININE 10.6 mg/dL (0.6-1.3)
[2024-01-09 13:10] LABS: TROPONIN I HIGH SENSITIVITY 390 ng/L (3.0-53)
[2024-01-09] MEDS: LACTATED RINGERS 1,000 ML IV SCH (16:00)
[2024-01-09] MEDS: PIPERACILLIN/TAZO 3.375G/50ML 50 ML IV SCH (17:59)
[2024-01-09] MEDS: ENOXAPARIN 60MG/0.6ML SYR SUBCUT SCH (18:01)
[2024-01-09] MEDS: VANCOMYCIN 250MG/5ML ORAL SYRINGE PO SCH (18:02)
[2024-01-09] MEDS: LAMIVUDINE 100 MG TABLET PO SCH (20:59)
[2024-01-09] MEDS: VANCOMYCIN 750MG/150ML (BAXTER) IV NR (22:10)
[2024-01-09] MEDS: ALBUMIN HUMAN 25GM/100ML (25%) IV NR (23:16)
[2024-01-10] VITALS (8 sets, daily range): BP systolic 89–145; BP diastolic 13–69; PULSE 63–79; RESP 11–26; TEMP 36.22512–37.11408; O2SAT 92–100
[2024-01-10] MEDS: PANTOPRAZOLE 40MG DR TABLET PO SCH (08:37)
== END 2024-01-10 17:20 | disposition short-term general hospital (02) | DRG 871 ==
LOC: ER 10:24 → 5EST 13:39 → EDBEDREQSVC 13:52 → EDBEDREQTM 13:52 → EDBEDREQ 13:52 → EDBEDREQSVC 01-08 07:43
PROVIDERS: ADMIT Hospitalist; ATTEND Hospitalist
PROC: 05HY33Z Insertion of Infusion Device into Upper Vein, Percutaneous Approach (ICD-10-PCS; 2024-01-07)
PROC: B54NZZA Ultrasonography of Left Upper Extremity Veins, Guidance (ICD-10-PCS; 2024-01-07)
PROC: 5A1D70Z Performance of Urinary Filtration, Intermittent, Less than 6 Hours Per Day (ICD-10-PCS; principal; 2024-01-09)
DX: A41.9 Sepsis, unspecified organism (principal); I50.33 Acute on chronic diastolic (congestive) heart failure; J96.01 Acute respiratory failure with hypoxia; N18.6 End stage renal disease; E87.20 Acidosis, unspecified; I13.2 Hypertensive heart and chronic kidney disease with heart failure and with stage 5 chronic kidney disease, or end stage renal disease; A04.72 Enterocolitis due to Clostridium difficile, not specified as recurrent; D84.822 Immunodeficiency due to external causes; B25.8 Other cytomegaloviral diseases; Z94.83 Pancreas transplant status; R65.20 Severe sepsis without septic shock; Z20.822 Contact with and (suspected) exposure to COVID-19; E78.5 Hyperlipidemia, unspecified; K52.9 Noninfective gastroenteritis and colitis, unspecified; E87.6 Hypokalemia; E83.51 Hypocalcemia; I48.0 Paroxysmal atrial fibrillation; S09.8XXA Other specified injuries of head, initial encounter; W18.39XA Other fall on same level, initial encounter; E83.42 Hypomagnesemia; E11.51 Type 2 diabetes mellitus with diabetic peripheral angiopathy without gangrene; E86.0 Dehydration; Z97.13 Presence of artificial right leg (complete) (partial); D64.9 Anemia, unspecified; Z99.2 Dependence on renal dialysis; Z89.511 Acquired absence of right leg below knee; Z79.624 Long term (current) use of inhibitors of nucleotide synthesis; Z88.8 Allergy status to other drugs, medicaments and biological substances; Z79.899 Other long term (current) drug therapy; Z79.4 Long term (current) use of insulin; Y93.89 Activity, other specified; Y92.89 Other specified places as the place of occurrence of the external cause; Y99.8 Other external cause status; Z79.01 Long term (current) use of anticoagulants; Z79.82 Long term (current) use of aspirin
CPT/HCPCS: 36415; 36573; 71045; 74018; 80048; 80053; 80061; 80202; 82040; 82550; 82607; 82728; 82746; 83036; 83540; 83550; 83605; 83735; 83880; 84100; 84145; 84484; 85025; 85027; 86705; 86709; 87015; 87045; 87340; 87420; 87426; 87427; 87449; 87493; 87804; 90935; 93005; 93970; 99291; C1725; C1893; J1650; J2543; J3370; J3475; J3480; J3490; J7030; J7120; J7507; J7512; J7517; P9047